=== PATIENT | male | born 1980 | race Caucasian/White ===

== ENCOUNTER 2019-06-12 03:38 | Emergency (ER) | payer MEDICAID ==
[~2019-06-12] VITALS: Ht 172.7 cm; Wt 95.0 kg
[2019-06-12] MEDS ORDERED: MORPHINE SULFATE 4 MG/ML CPJ (NOT FOR IM USE) IV STA ×2 (03:55→05:06)
[2019-06-12] MEDS ORDERED: ONDANSETRON HCL 4MG/2ML INJ IV STA ×2 (03:55→05:06)
[2019-06-12 04:12] LABS: BASOPHILS % 0.4 % (0.0-2.0); EOSINOPHILS % 0.6 % (0.0-5.0); HEMATOCRIT. 45.4 % (42.0-52.0); HEMOGLOBIN. 15.7 g/dL (14.0-18.0); LYMPHOCYTES % 19.7 % (20.0-50.0); MEAN PLATELET VOLUME 8.2 fl (7.4-10.4); MONOCYTES % 5.4 % (2.0-8.0); NEUTROPHILS % 73.9 % (40.0-76.0); PLATELET 269 x1000/uL (130-400); RED BLOOD CELL COUNT 5.05 mill/uL (4.7-6.1); RED CELL DISTRIBUTION WIDTH 14.5 % (11.6-14.6)
[2019-06-12 04:13] LABS: CLARITY URINE CLEAR (CLEAR); COLOR URINE YELLOW (YELLOW); KETONES URINE NEGATIVE (NEGATIVE); LEUKOCYTE ESTERASE URINE TRACE (NEGATIVE); NITRITE URINE NEGATIVE (NEGATIVE); OCCULT BLOOD URINE 3+ (NEGATIVE); PROTEIN URINE 2+ (NEGATIVE); SPECIFIC GRAVITY URINE 1.029 (1.005-1.030)
[2019-06-12 04:15] LABS: CHLORIDE 105 mEq/L (98-107)
[2019-06-12] MEDS ORDERED: FLUCONAZOLE 100MG TABLET PO ONE (05:15)
[2019-06-12] MEDS ORDERED: SODIUM CHLORIDE 0.9% 1,000 ML IV ONE (05:25)
[2019-06-12] MEDS ORDERED: KETOROLAC 15MG/ML VIAL IV ONE (05:30)
[2019-06-12 07:47] VITALS: BP 125/78
== END 2019-06-12 07:51 | disposition home or self-care (01) ==
LOC: ER 03:38
DX: R10.32 Left lower quadrant pain (principal)
CPT/HCPCS: 36415; 74176; 80053; 81003; 83690; 85025; 96374; 96375; 96376; 99284; J1885; J2270; J2405; J7030

== ENCOUNTER 2020-12-10 18:19 | Emergency (ER) | payer MEDICAID ==
[~2020-12-10] VITALS: Ht 160 cm; Wt 73.0 kg
[2020-12-10 18:52] VITALS: BP 155/101
[2020-12-10] MEDS ORDERED: IBUP-2028 MT (19:23)
[2020-12-10] MEDS ORDERED: IBUPROFEN 600MG TABLET PO ONE (19:30)
[2020-12-10] MEDS ORDERED: LIDOCAINE HCL/EPINEPHRINE 1%-EPI 1:100,000 20 ML VIAL INFIL ONE (19:30)
[2020-12-10] MEDS ORDERED: BACITRACIN ZINC OINT UDPKT TOP ONE (19:30)
[2020-12-10] MEDS ORDERED: TETANUS, DIPHTHERIA, PERTUSSIS VAC/PF 0.5ML (>10YR OLD) IM ONE (19:30)
== END 2020-12-10 21:06 | disposition home or self-care (01) ==
LOC: ER 18:19
DX: S81.011A Laceration without foreign body, right knee, initial encounter (principal); W26.8XXA Contact with other sharp object(s), not elsewhere classified, initial encounter; Y93.89 Activity, other specified; Y92.89 Other specified places as the place of occurrence of the external cause; Y99.8 Other external cause status
CPT/HCPCS: 12002; 73560; 90471; 90715; 99283; A4217; J3490; Z7610

== ENCOUNTER 2023-11-16 22:35 | Emergency (ER) | payer MEDICAID ==
[~2023-11-16] VITALS: Ht 160 cm; Wt 78.0 kg
[~2023-11-16 22:35] MED LIST: IBUP-2028 MT
[2023-11-16 22:40] VITALS: O2SAT 100
[2023-11-17] MEDS ORDERED: FLUC150T46 PO (00:24)
[2023-11-17] MEDS ORDERED: CLOT113C TP (00:24)
[2023-11-17] MEDS ORDERED: CETI10TA6 PO (00:24)
[2023-11-17 02:30] VITALS: BP 141/62; PULSE 78; RESP 16; TEMP 36.78072; O2SAT 100
[2023-11-17] MEDS: DIPHENHYDRAMINE 25MG CAPSULE PO ONE (02:30)
[2023-11-18] MEDS ORDERED: ERYT1OIN6 EACHEYE (19:03)
[2023-11-18] MEDS ORDERED: DOXY100T28 MT (19:03)
[2023-11-18] MEDS ORDERED: P50 MT (19:03)
[2023-11-18] MEDS ORDERED: DIPH25CA83 PO (19:03)
== END 2023-11-17 02:30 | disposition home or self-care (01) ==
LOC: ER 22:35
DX: B35.6 Tinea cruris (principal); B35.4 Tinea corporis; B37.9 Candidiasis, unspecified; L30.4 Erythema intertrigo; Z79.899 Other long term (current) drug therapy
CPT/HCPCS: 99283; Q0163

== ENCOUNTER 2023-11-18 12:33 | Emergency (ER) | payer MEDICAID ==
[~2023-11-18] VITALS: Ht 160 cm; Wt 73.0 kg
[~2023-11-18 12:33] MED LIST changes: +CETI10TA6 PO; +CLOT113C TP; +FLUC150T46 PO
[2023-11-18 12:42] VITALS: O2SAT 100
[2023-11-18] MEDS ORDERED: DIPHENHYDRAMINE 50MG/ML VIAL IM ONE (13:45)
[2023-11-18] MEDS ORDERED: METHYLPREDNISOLONE SOD SUCC 125MG/2ML (ACT-O-VIAL) IM ONE (13:45)
[2023-11-18 14:31] LABS: CHLORIDE 107 mEq/L (98-107); POTASSIUM 3.8 mEq/L (3.5-5.1); SODIUM 141 mEq/L (136-145)
[2023-11-18 14:32] LABS: BASOPHILS % 0.5 % (0.0-2.0); CARBON DIOXIDE 26 mEq/L (21-32); EOSINOPHILS % 3.1 % (0.0-5.0); HEMATOCRIT. 49.4 % (42.0-52.0); HEMOGLOBIN. 16.6 g/dL (14.0-18.0); MEAN CORPUSCULAR HEMOGLOBIN 30.9 pg (28.0-32.0); MEAN CORPUSCULAR HGB CONC 33.6 g/dL (31.0-37.0); MEAN CORPUSCULAR VOLUME 92.1 fL (80.0-94.0); MEAN PLATELET VOLUME 8.4 fl (7.4-10.4); MONOCYTES % 6.4 % (2.0-8.0); PLATELET 304 x1000/uL (130-400); RED BLOOD CELL COUNT 5.37 mill/uL (4.7-6.1); RED CELL DISTRIBUTION WIDTH 14.7 % (11.6-14.6); WHITE BLOOD COUNT 6.2 x1000/uL (4.5-11.0)
[2023-11-18 14:33] LABS: CALCIUM 9.7 mg/dL (8.7-10.4)
[2023-11-18 14:37] LABS: CREATININE 0.9 mg/dL (0.6-1.3); GLUCOSE 105 mg/dL (70-105); UREA NITROGEN BLOOD 16 mg/dL (9-23)
[2023-11-18] MEDS ORDERED: FAMOTIDINE 20MG TABLET PO ONE (15:15)
[2023-11-18] MEDS: METHYLPREDNISOLONE SOD SUCC 125MG/2ML (ACT-O-VIAL) IM NR (17:32)
[2023-11-18] MEDS: DIPHENHYDRAMINE 50MG/ML VIAL IM NR (17:32)
[2023-11-18] MEDS: FAMOTIDINE 20MG TABLET PO NR (17:32)
[2023-11-18] MEDS: DIPHENHYDRAMINE 50MG/ML VIAL IM ONE (18:50)
[2023-11-18] MEDS ORDERED: P50 MT (19:03)
[2023-11-18] MEDS ORDERED: DOXY100T28 MT (19:03)
[2023-11-18] MEDS ORDERED: DIPH25CA83 PO (19:03)
[2023-11-18] MEDS ORDERED: ERYT1OIN6 EACHEYE (19:03)
[2023-11-18 21:50] VITALS: BP 135/80; PULSE 89; RESP 18; TEMP 36.66960; O2SAT 100
== END 2023-11-18 21:57 | disposition home or self-care (01) ==
LOC: ER 12:51
DX: T78.40XA Allergy, unspecified, initial encounter (principal); H01.006 Unspecified blepharitis left eye, unspecified eyelid; H01.003 Unspecified blepharitis right eye, unspecified eyelid; X58.XXXA Exposure to other specified factors, initial encounter
CPT/HCPCS: 99284; 80048; 85025; 36415; 96372; J1200; J2919

== ENCOUNTER 2023-11-27 14:54 | Emergency (ER) | payer MEDICAID ==
[~2023-11-27] VITALS: Ht 165.1 cm; Wt 75.0 kg
[~2023-11-27 14:54] MED LIST changes: -CETI10TA6 PO; -CLOT113C TP; +DIPH25CA83 PO; +DOXY100T28 MT; +ERYT1OIN6 EACHEYE; -FLUC150T46 PO; +P50 MT
[2023-11-27 14:56] VITALS: O2SAT 100
[2023-11-27 15:04] VITALS: BP 131/87; PULSE 103; RESP 18; TEMP 98.5; O2SAT 100
[2023-11-27] MEDS ORDERED: TERB30CR8 TP (17:12)
[2023-11-27] MEDS ORDERED: P50 MT (18:22)
== END 2023-11-27 19:03 | disposition home or self-care (01) ==
LOC: ER 14:54
DX: L30.4 Erythema intertrigo (principal); B35.6 Tinea cruris; Z79.899 Other long term (current) drug therapy
CPT/HCPCS: 99283